=== PATIENT | male | born 1960 | race African-American/Black ===

== ENCOUNTER 2019-02-08 15:18 | Inpatient (IN) | payer MEDICAID ==
[~2019-02-08] VITALS: Ht 188 cm; Wt 137.9 kg
[2019-02-08] MEDS ORDERED: SODIUM CHLORIDE 0.9% 1,000 ML IV ONE ×2 (15:30→18:03)
[2019-02-08] MEDS ORDERED: ONDANSETRON HCL 4MG/2ML INJ IV STA (15:30)
[2019-02-08] MEDS ORDERED: LEVETIRACETAM 500MG PREMIX 100 ML IV ONE (15:30)
[2019-02-08 16:37] LABS: BASOPHILS % 0.3 % (0.0-2.0); EOSINOPHILS % 0.7 % (0.0-5.0); HEMATOCRIT. 50.9 % (42.0-52.0); LYMPHOCYTES % 8.3 % (20.0-50.0); MEAN CORPUSCULAR HEMOGLOBIN 31.4 pg (28.0-32.0); MEAN CORPUSCULAR VOLUME 94.1 fL (80.0-94.0); MEAN PLATELET VOLUME 8.4 fl (7.4-10.4); MONOCYTES % 0.9 % (2.0-8.0); NEUTROPHILS % 89.8 % (40.0-76.0); PLATELET 142 x1000/uL (130-400); RED BLOOD CELL COUNT 5.41 mill/uL (4.7-6.1); RED CELL DISTRIBUTION WIDTH 14.1 % (11.6-14.6)
[2019-02-08 16:43] LABS: CHLORIDE 107 mEq/L (98-107); INR 1.1; PROTHROMBIN TIME 11.4 sec (9.6-11.0)
[2019-02-08 16:47] LABS: ETHANOL BLOOD < 10 mg/dL
[2019-02-08 16:49] LABS: CLARITY URINE CLEAR (CLEAR); COLOR URINE YELLOW (YELLOW); KETONES URINE NEGATIVE (NEGATIVE); LEUKOCYTE ESTERASE URINE 1+ (NEGATIVE); NITRITE URINE NEGATIVE (NEGATIVE); OCCULT BLOOD URINE NEGATIVE (NEGATIVE); PH URINE 5.5 (4.5-8.0); PROTEIN URINE NEGATIVE (NEGATIVE); UROBILINOGEN URINE 0.2 E.U./dL (0.2-1.0)
[2019-02-08 16:52] LABS: CREATINE KINASE 980 IU/L (39-308)
[2019-02-08 17:06] LABS: CARBAMAZEPINE < 0.5 ug/mL (4-12); PHENOBARBITAL < 2.1 ug/mL (15.0-40.0); VALPROIC ACID < 3.0 ug/mL (50-100)
[2019-02-08 17:28] LABS: *AMPHETAMINES SCREEN URINE NEGATIVE (NEGATIVE); *BARBITURATES SCREEN URINE NEGATIVE (NEGATIVE); *BENZODIAZEPINES SCREEN URINE NEGATIVE (NEGATIVE); *COCAINE SCREEN URINE NEGATIVE (NEGATIVE); METHADONE URINE SCREEN NEGATIVE (NEGATIVE); OPIATES URINE SCREEN NEGATIVE (NEGATIVE)
[2019-02-08 17:29] LABS: CANNABINOID URINE SCREEN PRESUMTIVE POSITIVE (NEGATIVE); PHENCYCLIDINE URINE SCREEN NEGATIVE (NEGATIVE)
[2019-02-08] MEDS ORDERED: HYDROCODONE/ACETAMINOPHEN 5/325MG TABLET PO PRN (20:15)
[2019-02-08] MEDS ORDERED: DOCUSATE SODIUM 100MG CAPSULE PO PRN (20:15)
[2019-02-08] MEDS ORDERED: LORAZEPAM 2MG/ML CPJ IV PRN (20:15)
[2019-02-08] MEDS ORDERED: CLONIDINE 0.1MG TABLET PO PRN (20:15)
[2019-02-08] MEDS ORDERED: GUAIFENESIN 200MG/10ML SUGAR FREE UDC PO PRN (20:15)
[2019-02-08] MEDS ORDERED: ONDANSETRON HCL 4MG/2ML INJ IV PRN (20:15)
[2019-02-08 22:14] VITALS: BP 133/71
[2019-02-08 22:15] VITALS: BP 133/71
[2019-02-08] MEDS: SODIUM CHLORIDE 0.45% 1,000 ML IV SCH (22:38)
[2019-02-08] MEDS ORDERED: TAMS-11 MT (22:49)
[2019-02-08] MEDS: LEVETIRACETAM 500 MG in SODIUM CHLORIDE 0.9% 100 ML IV SCH (23:03)
[2019-02-09] VITALS: BP_SYST 110; BP_SYST 116; BP_DIAS 68; BP_DIAS 76
[2019-02-09 00:28] LABS: CREATINE KINASE 669 IU/L (39-308)
[2019-02-09 04:00] VITALS: BP 110/76
[2019-02-09 06:04] LABS: CHLORIDE 109 mEq/L (98-107)
[2019-02-09 06:06] LABS: HEMATOCRIT. 43.7 % (42.0-52.0); HEMOGLOBIN. 14.6 g/dL (14.0-18.0); MEAN CORPUSCULAR HEMOGLOBIN 31.1 pg (28.0-32.0); MEAN CORPUSCULAR VOLUME 92.8 fL (80.0-94.0); MEAN PLATELET VOLUME 8.7 fl (7.4-10.4); PLATELET 109 x1000/uL (130-400); RED BLOOD CELL COUNT 4.71 mill/uL (4.7-6.1); RED CELL DISTRIBUTION WIDTH 13.9 % (11.6-14.6)
[2019-02-09 06:18] LABS: CREATINE KINASE 567 IU/L (39-308)
[2019-02-09] MEDS: SODIUM CHLORIDE 0.45% 1,000 ML IV SCH (08:35)
[2019-02-09] MEDS: AMLODIPINE 10MG TABLET PO SCH (09:00)
[2019-02-09] MEDS: LEVETIRACETAM 500 MG in SODIUM CHLORIDE 0.9% 100 ML IV SCH (09:14)
[2019-02-09 12:00] VITALS: BP 116/61
[2019-02-09] MEDS: TAMSULOSIN HCL 0.4MG SR CAPSULE PO SCH (12:29)
[2019-02-09] MEDS: ENOXAPARIN 40MG/0.4ML SYR SUBCUT SCH ×2 (12:30→21:17)
[2019-02-09 16:00] VITALS: BP 110/60
[2019-02-09 19:23] LABS: PLATELET ESTIMATE DECREASED
[2019-02-09 20:00] VITALS: BP 103/44
[2019-02-09] MEDS: ACETAMINOPHEN 325MG TABLET PO PRN (21:16)
[2019-02-09] MEDS: LEVETIRACETAM 500MG TABLET PO SCH (21:17)
[2019-02-10] VITALS: BP 111/63
[2019-02-10 04:00] VITALS: BP 102/63
[2019-02-10] MEDS: SODIUM CHLORIDE 0.45% 1,000 ML IV SCH (04:58)
[2019-02-10 07:54] VITALS: BP 129/63
[2019-02-10] MEDS: ENOXAPARIN 40MG/0.4ML SYR SUBCUT SCH ×2 (08:10→20:27)
[2019-02-10] MEDS: LEVETIRACETAM 500MG TABLET PO SCH ×2 (08:10→20:27)
[2019-02-10] MEDS: TAMSULOSIN HCL 0.4MG SR CAPSULE PO SCH (08:10)
[2019-02-10] MEDS: AMLODIPINE 10MG TABLET PO SCH (08:10)
[2019-02-10] MEDS: PANTOPRAZOLE SODIUM 40 MG/VIAL IV SCH (09:09)
[2019-02-10 11:54] VITALS: BP 142/67
[2019-02-10] MEDS: METRONIDAZOLE 500MG TABLET PO SCH ×2 (14:16→22:23)
[2019-02-10 15:40] VITALS: BP 130/52
[2019-02-10 20:00] VITALS: BP 106/58
[2019-02-10] MEDS: ACETAMINOPHEN 325MG TABLET PO PRN (20:27)
[2019-02-11] VITALS: BP 112/57
[2019-02-11] MEDS: SODIUM CHLORIDE 0.45% 1,000 ML IV SCH (01:27)
[2019-02-11 04:00] VITALS: BP 131/50
[2019-02-11] MEDS: METRONIDAZOLE 500MG TABLET PO SCH ×2 (06:38→13:46)
[2019-02-11 07:04] LABS: HEMOGLOBIN. 15.1 g/dL (14.0-18.0); MEAN CORPUSCULAR HEMOGLOBIN 31.1 pg (28.0-32.0); MEAN CORPUSCULAR VOLUME 92.5 fL (80.0-94.0); MEAN PLATELET VOLUME 8.6 fl (7.4-10.4); PLATELET 78 x1000/uL (130-400); RED BLOOD CELL COUNT 4.87 mill/uL (4.7-6.1); RED CELL DISTRIBUTION WIDTH 14.4 % (11.6-14.6)
[2019-02-11 07:16] LABS: CHLORIDE 104 mEq/L (98-107)
[2019-02-11 08:00] VITALS: BP 129/79
[2019-02-11] MEDS: ENOXAPARIN 40MG/0.4ML SYR SUBCUT SCH (08:57)
[2019-02-11] MEDS: LEVETIRACETAM 500MG TABLET PO SCH (08:57)
[2019-02-11] MEDS: AMLODIPINE 10MG TABLET PO SCH (08:58)
[2019-02-11] MEDS: TAMSULOSIN HCL 0.4MG SR CAPSULE PO SCH (09:00)
[2019-02-11] MEDS: PANTOPRAZOLE SODIUM 40 MG/VIAL IV SCH (09:59)
[2019-02-11 12:00] VITALS: BP 127/72
[2019-02-11 13:43] VITALS: BP 127/72
[2019-02-11 14:03] LABS: PLATELET ESTIMATE DECREASED
[2019-02-11 16:00] VITALS: BP 127/72
== END 2019-02-11 17:39 | disposition home or self-care (01) | DRG 469 ==
LOC: ER 15:18 → EDBEDREQ 18:11 → 7WST 19:19 → EDBEDREQ 19:29 → EDBEDREQTM 19:29 → ENRESERV 21:15
PROVIDERS: ADMIT Hospitalist; ATTEND Hospitalist
DX: N17.9 Acute kidney failure, unspecified (principal); M62.82 Rhabdomyolysis; A04.72 Enterocolitis due to Clostridium difficile, not specified as recurrent; G40.409 Other generalized epilepsy and epileptic syndromes, not intractable, without status epilepticus; E66.01 Morbid (severe) obesity due to excess calories; N40.0 Benign prostatic hyperplasia without lower urinary tract symptoms; D64.9 Anemia, unspecified; D63.8 Anemia in other chronic diseases classified elsewhere; Z68.39 Body mass index [BMI] 39.0-39.9, adult
CPT/HCPCS: 36415; 80156; 80165; 80184; 80185; 80305; 80320; 81003; 82140; 82550; 83880; 84443; 84484; 87493; 93005; 96365; 99285; C9113; J1650; J1953; J2405; J7030; J7050; G0480